=== PATIENT | male | born 1995 | race Caucasian/White ===

== ENCOUNTER 2017-08-01 07:28 | Inpatient (IN) ==
[2017-08-01] MEDS ORDERED: *HR* LORazepam 2 MG/ML VIAL IM PRN (08:01)
[2017-08-01] MEDS ORDERED: MOM Conc 10 ML UD.LIQ PO PRN (08:01)
[2017-08-01] MEDS ORDERED: Mag Hydrox/Al Hydrox/Simeth 30 ML UDC PO PRN (08:01)
[2017-08-01] MEDS ORDERED: Haloperidol Lactate 5 MG/ML VIAL IM PRN (08:01)
[2017-08-01] MEDS ORDERED: Ibuprofen 400 MG TABLET PO PRN (08:01)
[2017-08-01] MEDS ORDERED: Ondansetron ODT 4 MG TAB.RAPDIS SL PRN (08:05)
--- NOTE | 2017-08-01 08:13 | Psychiatry History & Physical ---
Date of Encounter: 08/01/17 Time of Encounter: 08:00 History of Present Illness Medicare Admission Attestation: For traditional Medicare patients the provided hospital inpatient services are reasonable and necessary and in the case of services not specified as inpatient -only under 42 CFR 419.22 (n), that they are appropriately provided as inpatient services in accordance 42 CFR 412.3. For Critical Access Hospital the patient may reasonably be expected to be discharged or transferred to a hospital within 96 hours after admission to the Critical Access Hospital. Admitted From: Intrahospital Transfer Plans for Post Hospital Care: Home History of Present Illness: Pt is a 22 yo ,, male, never , with no children, who presents for schizophrenia, depression and anxiety . P tnoted he has not been taking his medicaitons and was starting to hear voices and feel depressed. Pt noted he doing better since he is back on his medications and feeling safe. Pt noted he currently lives in [place] with my grandmother. Pt noted recent exacerbation of depression. Pt states when I came in I thought I wanted to hurt myself. Pt noted I came in because I needed some help I feel much better now. I feel safe and comfortable on the unit. Pt denied any side effects to current medications. Pt was in agreement with current treatment plan. Pt noted that he is doing not too good today. Pt noted he slept 1 hours broken night. Pt noted his appetite is its down. Pt rated his depression a 7, on a scale of zero to ten with ten being the worst and zero being none. Pt rate his anxiety a 8, on the same scale. Pt denied any auditory or visual hallucinations. Pt denied any current thoughts to harm anyone else. Pt noted occasional passive suicidal ideation, denies any current Pt noted that his mother is alive but we dont talk. PT noted my dad is alive and we talk regularly. Pt noted that his highest level of education is [employer]. Pt noted he is currently unemployed and receives SSDI. Pt noted multiple inpt psychiatric hospitalizations. Pt noted 3 previous suicide attempts last being cutting with a razor. Pt denied any family hx of suicides. PT denied any family mental health hx. Pt could not recall his medications hx however knew his diagnosis of schizophrenia, depression and anxiety Pt denied TBIs, Seizurs, HEP C or HIV. No TD noted, AIMS=0 MSE: Alert and Oriented x3 Appearance: appropriately groomed dressed in civilian attire Behavior: Polite, friendly, courteous Speech: fluent, normal tone, normal rate Mood: better but I am depression Affect: mood congruent Thought content: no HI noted, no SI noted, hx of delusions noted Psychosis: Signficant thought blocking noted Thought Process: linear logical, goal directed Judgment: Poor. Insight: questionable. Assessment/Plan 1.Interval hx 2.Continue current medications 3.Review current labs 4.Pt had an opportunity to ask questions and discuss current treatment plan. 5.Supportive therapy was provided 6.Pt encouraged to consider group or individual therapy 7.Pt was in agreement with treatment plan. 8.Pt was educated on the risks benefits and side effects of current medications. Medications & Allergies 3 Allergy/AdvReac Type Severity Reaction Status Date / Time No Known Allergies Allergy Verified 08/01/17 08:01 Review of Systems Constitutional: Denies: fever, chills, weakness, weight change Eyes: Denies: eye pain, vision change Ears, Nose, Throat: Denies: ear pain, throat pain, dental pain, hearing loss, congestion Cardiovascular: Denies: chest pain, palpitations, dyspnea on exertion Respiratory: Denies: cough, dyspnea, wheezes Gastrointestinal: Denies: abdominal pain, nausea, vomiting, diarrhea, constipation Genitourinary male: Denies: urgency, dysuria, frequency, genital lesions Musculoskeletal: Denies: joint swelling, joint pain Integumentary: Denies: rash, lesions, pruritus Neurological: Denies: headache, weakness, numbness, memory loss Psychiatric: Reports: depression, anxiety, abnormal sleep pattern, suicidal ideation, auditory hallucinations, visual hallucinations, anhedonia, mood swings Endocrine: Denies: fatigue, heat or cold intolerance Hematologic/Lymphatic: Denies: easy bruising, lymphadenopathy Allergic/Immunologic: Denies: urticaria, itchy eyes Exam - HEENT Head exam IM: Present: atraumatic Eye exam IM: Present: EOMI, normal appearance, PERRL ENT exam IM: Present: normal exam - Neurological Neurological exam: Present: CN II-XII intact - Respiratory Respiratory exam IM: Present: CTAB - GI/Abdominal GI/Abdominal exam IM: Present: normal bowel sounds, soft. Absent: tenderness - Extremities Extremities exam IM: Present: full ROM - Skin Skin exam IM: Present: dry, warm - Constitutional General appearance: age & developmentally appropriate, well-groomed, well- nourished - Musculoskeletal Gait: normal Station: relaxed Strength & Tone: normal for patient - Psychiatric Patient Orientation: Yes Person, Yes Time, Yes Place Level of alertness: Alert Behavior: calm, cooperative, guarded Psychomotor activity: Slowed Eye Contact: Minimal Contact Mood Description: Euthymic/stable, Depressed Affect description: congruent with mood, blunted, flat Speech Volume: Normal Speech pattern: normal rate, normal rhythm, normal tone, fluent, spontaneous, slowed Language & Vocabulary: consistent with education Thought Process: Linear, Goal Oriented, Thought Blocking Thought Content: Yes Suicidal ideation, No Homicidal ideation, No Overt delusions, Yes Ideas of reference, Yes Paranoid delusion Perceptual Disturbances: Yes Auditory hallucinations, Yes Visual hallucinations Attention Span Ability: Capable of Focused Attention Memory Description: Grossly Intact Patient Reliability: Reliable Historian Fund of knowledge: Yes abstraction ability, Yes average, Yes aware of current events Intelligence Estimate: Average Judgment: Limited Insight: Partial Assessment and Plan (1) Schizoaffective disorder Current visit: Yes Status: Acute Plan: Admit inpatient for safety and stabilization, Close observation, Suicide Precautions per unit protocol, Encourage participation in unit milieu, Group Therapy, Monitor sleep, Monitor appetite Risks, benefits, side effects, alternatives discussed w/pt: Yes Patient agreeable to treatment: Yes Plans for Post Hospital Care: Home Qualifiers: Schizoaffective disorder type: depressive Qualified Code(s): F25.1 - Schizoaffective disorder, depressive type (2) Depression Current visit: Yes Status: Acute Plan: Admit inpatient for safety and stabilization, Close observation, Suicide Precautions per unit protocol, Encourage participation in unit milieu, Group Therapy, Monitor sleep, Monitor appetite Risks, benefits, side effects, alternatives discussed w/pt: Yes Patient agreeable to treatment: Yes Plans for Post Hospital Care: Home Qualifiers: Depression Type: major depressive disorder Major depression recurrence: recurrent Qualified Code(s): F33.3 - Major depressive disorder, recurrent, severe with psychotic symptoms (3) Suicidal ideation Current visit: Yes Status: Acute Plan: Admit inpatient for safety and stabilization, Close observation, Suicide Precautions per unit protocol, Encourage participation in unit milieu, Group Therapy, Monitor sleep, Monitor appetite Risks, benefits, side effects, alternatives discussed w/pt: Yes Patient agreeable to treatment: Yes Plans for Post Hospital Care: Home
[2017-08-01] MEDS ORDERED: risperiDONE 1 MG TABLET PO SCH (09:00)
[2017-08-01] MEDS: lamoTRIgine 100 MG TABLET PO SCH (10:45)
[2017-08-01] MEDS: *HR* LORazepam 1 MG TABLET PO PRN (11:05)
[2017-08-01] MEDS ORDERED: *HR* LORazepam 1 MG TABLET PO ONE (12:26)
--- NOTE | 2017-08-01 15:19 | Internal Medicine Consult Note ---
Date of Encounter: 08/01/17 Time of Encounter: 15:08 - Assessment and plan (1) Hypothyroidism Current Visit: Yes Status: Suspected Assessment and plan: Hospitalist team being consult with concerns of hypothyroidism Patient admitted to inpatient psychiatric unit due to suicidal ideation, schizophrenia and intent to harm others [facility] found TSH greater than 4 during workup No known history of thyroid disorder -Obtain TSH now, free T4 Consider adding Synthroid the pending lab results Patient does not appear to have any S/SX of hypothyroidism Thyroid exam unremarkable Qualifiers: Qualified Code(s): E03.9 - Hypothyroidism, unspecified - Time Spent With Patient Total time spent is greater than 50% in coordination of care (as documented) at patient's floor/unit and/or counseling patient: 25 - 35 minutes Internal Medicine - CN: HPI - Data of Consult Patient: new to practice Consult date: 08/01/17 Requesting Physician: Chevy Atkinson - Consult Narrative History of present illness: Mr. Cota is a 22 year old male currently admitted to the inpatient psychiatric unit with schizophrenia, experiencing hallucinations with intent to harm others. Hospitalist is being consult for concerns for hypothyroidism. Patient from an [facility], TSH elevated at greater than 4. No history of thyroid disease. Past Med Surg Social Fam HX - Past Medical History Medical history: no medical history Psychiatric history: depression, prior suicide attempt, schizophrenia - Past Surgical History Additional surgical history: Bilat knee surgeries for ACL. - Social History Smoking Status: Current every day smoker Packs per day: 1/2 per day Smokeless Tobacco Status: No Alcohol use: none Drug use: marijuana - Family History Father History Unknown: Yes Adopted: [place]: [place] Age: 46 Family Member Ethnicity: Non- Living Status: Still Living Hx Family Cardiac Disorders: No Hx Family Respiratory Disorders: No Hx Family Cancer: No Hx Family GI Disorders: No Hx Family Genitourinary Disorders: No Hx Family Endocrine Disorder: No Hx Family Musculoskeletal Disorders: No Hx Family Neuromuscular Disorders: No Hx Family Neurologic Disorders: No Hx Family HEENT Disorders: No Hx Family Autoimmune Disorders: No Hx Family Reproductive Disorders: No Hx Family Psychosocial Disorders: No Hx Family Medical Disorders: No ROS unobtainable: due to mental status Internal Medicine - CN: Meds Aripiprazole [Abilify] 20 mg PO DAILY 08/01/17 [History] Benztropine [Cogentin] 1 mg PO BID 08/01/17 [History] Prazosin HCl [Minipress] 2 mg PO HS 08/01/17 [History] lamoTRIgine [Lamictal] 100 mg PO DAILY 08/01/17 [History] 3 Allergy/AdvReac Type Severity Reaction Status Date / Time No Known Allergies Allergy Verified 08/01/17 08:01 Internal Medicine - CN: Exam - Constitutional Vitals: Temp Pulse Resp BP 97.7 F 87 18 120/90 08/01/17 09:00 08/01/17 09:00 08/01/17 09:00 08/01/17 09:00 General appearance IM: Absent: answers questions appropriately - Head Head exam: Present: atraumatic, normal inspection - Expanded Head Exam Head exam expanded IM: Absent: Grace's sign - Eye Eye exam: Present: PERRL - Neck Neck exam general surgery: Present: normal inspection - Respiratory Respiratory exam: Present: CTAB - Cardiovascular Cardiovascular exam IM: Present: +S1, +S2 Consult Discharge Plan - Plan Referrals: [facility] [Other] - 08/25/17 2:00 pm (You will see Earl Kurtz for outpatient psychatric assessment and medication management services on 08/25/2017 at 2:00pm. You will also see Ricardo James for outpatient [facility] services on 09/03/2017 at 9:00am.)
[2017-08-01 17:59] LABS: Thyroid Stimulating Hormone 1.886 mcIU/mL (0.340-5.600)
[2017-08-01] MEDS: risperiDONE 1 MG TABLET PO SCH (20:56)
[2017-08-02] MEDS: lamoTRIgine 100 MG TABLET PO SCH (08:50)
[2017-08-02] MEDS: risperiDONE 1 MG TABLET PO SCH ×2 (08:50→20:58)
--- NOTE | 2017-08-02 09:07 | Internal Med Progress Note ---
Date of Encounter: 08/02/17 Time of Encounter: 09:05 - Assessment and plan (1) Hypothyroidism Current Visit: Yes Status: Suspected Assessment and plan: Hospitalist was consulted due to concerns of hypothyroidism Patient admitted to inpatient psychiatric unit due to suicidal ideation, schizophrenia and intent to harm others Outlying hospital found TSH greater than 4 during workup; repeat TSH 1.886, free T40.95; does not appear to have hypothyroidism; likely caused by antipsychotic medications No known history of thyroid disorder Grossly normal at the toe exam Hospitalist team signing off; please reconsult should any further needs arise. Thank you for consultation Qualifiers: Qualified Code(s): E03.9 - Hypothyroidism, unspecified - Time Spent With Patient Total time spent is greater than 50% in coordination of care (as documented) at patient's floor/unit and/or counseling patient: less than 15 minutes - Subjective Interval history: No acute changes overnight - Constitutional Vitals: Temp Pulse Resp BP 98.6 F 62 18 126/86 08/01/17 20:19 08/01/17 20:19 08/01/17 20:19 08/01/17 20:56 General appearance: Absent: answers questions appropriately - Head Head exam: Present: atraumatic, normocephalic - Eye Eye exam: Present: PERRL, conjuntiva pink, sclera anicteric Pupils: Present: PERRL - Neck Neck exam general surgery: Present: supple, trachea midline. Absent: lymphadenopathy - Respiratory Respiratory exam: Present: CTAB. Absent: accessory muscle use, rales, rhonchi, wheezes - Cardiovascular Cardiovascular exam: Present: RRR, +S1, +S2. Absent: diastolic murmur, gallop, rubs, systolic murmur - GI/Abdominal GI/Abdominal exam: Present: normal bowel sounds, soft, no peritoneal signs. Absent: distended, tenderness - Extremities Exam Extremities exam: Present: warm, radial pulses palpable and symmetrical. Absent : calf tenderness, cyanotic, pedal edema - Neurological Exam Neurological exam: Present: CN II-XII intact, oriented X3, no focal deficits. Absent: pronater drift, facial droop, speech deficit - Skin Skin exam: Present: dry, intact - VTE Reasons for not Prescribing Prophylaxis: Treatment not Indicated - Low risk for VTE Consult Discharge Plan - Plan Referrals: [facility] [Other] - 08/25/17 2:00 pm (You will see Earl Kurtz for outpatient psychatric assessment and medication management services on 08/25/2017 at 2:00pm. You will also see Ricardo James for outpatient [facility] counseling services on 09/03/2017 at 9:00am.)
--- NOTE | 2017-08-02 15:23 | Psychiatry Progress Note ---
Date of Encounter: 08/02/17 Time of Encounter: 15:00 Subjective Interval history: The patient is a 22-year-old white male. Chief complaint I might be feeling a little better on the new medicine. History of present illness:. The patient has reported seeing shadows and suicidal and homicidal ideation and come from bad thoughts. He did not want to discuss methods that it would use to harm other people or methods that he would use to harm himself. No actions to harm self. 2 days prior to going into the crisis unit he stopped his medicine. He is currently in an transition from Abilify to Risperdal. He notes no side effects to the medicine. He notes that before the medicine was started he did have a tremor of the right hand. This does not interfere with writing eating Review of Systems Psychiatric: Reports: depression, anxiety, abnormal sleep pattern, suicidal ideation, homicidal ideation, auditory hallucinations, visual hallucinations, anhedonia, mood swings Results - Vital Signs Vital Signs: Temp Pulse Resp BP 97.8 F 98 16 120/81 08/02/17 09:00 08/02/17 09:00 08/02/17 09:00 08/02/17 09:00 - Labs Labs: Laboratory Results - last 24 hr 08/01/17 16:55 TSH 1.886 Free T4 0.95 Assessment and Plan (1) Schizoaffective disorder Current visit: Yes Status: Acute Plan: Continue hospitalization, Close observation, Suicide Precautions per unit protocol, Encourage participation in unit milieu, Group Therapy, Monitor sleep, Monitor appetite Risks, benefits, side effects, alternatives discussed w/pt: Yes Patient agreeable to treatment: Yes Qualifiers: Schizoaffective disorder type: depressive Qualified Code(s): F25.1 - Schizoaffective disorder, depressive type (2) Depression Current visit: Yes Status: Acute Plan: Continue hospitalization, Suicide Precautions per unit protocol, Secure weapons Risks, benefits, side effects, alternatives discussed w/pt: Yes Patient agreeable to treatment: Yes Qualifiers: Depression Type: major depressive disorder Major depression recurrence: recurrent Qualified Code(s): F33.3 - Major depressive disorder, recurrent, severe with psychotic symptoms (3) Suicidal ideation Current visit: Yes Status: Acute Plan: Secure weapons, Family/Supportive other meeting Risks, benefits, side effects, alternatives discussed w/pt: Yes Patient agreeable to treatment: Yes (4) Hypothyroidism Current visit: Yes Status: Resolved Risks, benefits, side effects, alternatives discussed w/pt: Yes Patient agreeable to treatment: Yes Qualifiers: Hypothyroidism type: unspecified Qualified Code(s): E03.9 - Hypothyroidism , unspecified Consult Discharge Plan - Plan Referrals: [facility] [Other] - 08/25/17 2:00 pm (You will see Earl Kurtz for outpatient psychatric assessment and medication management services on 08/25/2017 at 2:00pm. You will also see Ricardo James for outpatient [facility] counseling services on 09/03/2017 at 9:00am.) Psychiatry Exam - Constitutional Vitals: Temp Pulse Resp BP 97.8 F 98 16 120/81 08/02/17 09:00 08/02/17 09:00 08/02/17 09:00 08/02/17 09:00 General appearance: age & developmentally appropriate, obese - Musculoskeletal Gait: slow Station: stooped Strength & Tone: normal for patient - Psychiatric Patient Orientation: Yes Person, Yes Time Level of alertness: Alert Behavior: calm, cooperative Psychomotor activity: Slowed Eye Contact: Minimal Contact Mood Description: Depressed Affect description: dysphoric Speech Volume: Soft/Quiet Speech pattern: normal rate Language & Vocabulary: high school level Thought Process: Linear, Evasive Thought Content: Yes Suicidal ideation, Yes Homicidal ideation, Yes Poverty of Content Perceptual Disturbances: Yes Auditory hallucinations, Yes Visual hallucinations Attention Span Ability: Capable of Sustained Attention Memory Description: Grossly Intact Patient Reliability: Questionable Historian Fund of knowledge: Yes average Intelligence Estimate: Average Judgment: Limited Insight: Minimal
[2017-08-02] MEDS: *HR* LORazepam 1 MG TABLET PO PRN ×2 (18:16→21:35)
[2017-08-03] MEDS: risperiDONE 1 MG TABLET PO SCH (08:45)
[2017-08-03] MEDS: lamoTRIgine 100 MG TABLET PO SCH (08:45)
--- NOTE | 2017-08-03 12:24 | Psychiatry Progress Note ---
Date of Encounter: 08/03/17 Time of Encounter: 11:15 Subjective Interval history: Pt is a 22 yo ,, male, never , with no children, who presents for schizophrenia, depression and anxiety . P tnoted he has not been taking his medicaitons and was starting to hear voices and feel depressed. Pt noted he doing better since he is back on his medications and feeling safe. Pt noted he currently lives in [place] with my grandmother. Pt noted recent exacerbation of depression. Pt states when I came in I thought I wanted to hurt myself. I feel safe and comfortable on the unit. Pt denied any side effects to current medications. Pt was in agreement with current treatment plan. Pt noted that he is doing not too good today. Pt noted he slept 8- 10 broken night. Pt noted his appetite is its down. Pt rated his depression a 6, on a scale of zero to ten with ten being the worst and zero being none. Pt rate his anxiety a 7, on the same scale. Pt denied any auditory or visual hallucinations. Pt denied any current thoughts to harm anyone else. Pt noted occasional passive suicidal ideation, denies any current PT was placed in quite room overnight due to hitting himeself in the face, because he was having thoughts to harm other people. Pt was given a ruberband to jay his wrist when he has those thoughts again so he does not hit himself. PT was in agreement. Pt denied TBIs, Seizurs, HEP C or HIV. No TD noted, AIMS=0 Assessment/Plan 1.Interval hx 2.Continue current medications 3.Review current labs 4.Pt had an opportunity to ask questions and discuss current treatment plan. 5.Supportive therapy was provided 6.Pt encouraged to consider group or individual therapy 7.Pt was in agreement with treatment plan. 8.Pt was educated on the risks benefits and side effects of current medications. 9. Increase risperidone to 2 mg PO QAM and 4 mg PO QHS for mood and psychosis Review of Systems Constitutional: Denies: fever, chills, weakness, weight change Eyes: Denies: eye pain, vision change Ears, Nose, Throat: Denies: ear pain, throat pain, dental pain, hearing loss, congestion Cardiovascular: Denies: chest pain, palpitations, dyspnea on exertion Respiratory: Denies: cough, dyspnea, wheezes Gastrointestinal: Denies: abdominal pain, nausea, vomiting, diarrhea, constipation Musculoskeletal: Denies: joint swelling, joint pain Neurological: Denies: headache, weakness, numbness, memory loss Psychiatric: Reports: depression, anxiety, abnormal sleep pattern, suicidal ideation, homicidal ideation, auditory hallucinations, visual hallucinations, anhedonia, mood swings Results - Vital Signs Vital Signs: Temp Pulse Resp BP 97 F L 99 16 132/89 08/03/17 09:00 08/03/17 09:00 08/03/17 09:00 08/03/17 09:00 Assessment and Plan (1) Schizoaffective disorder Current visit: Yes Status: Acute Plan: Continue hospitalization, Close observation, Suicide Precautions per unit protocol, Encourage participation in unit milieu, Group Therapy, Monitor sleep, Monitor appetite Risks, benefits, side effects, alternatives discussed w/pt: Yes Patient agreeable to treatment: Yes Qualifiers: Schizoaffective disorder type: depressive Qualified Code(s): F25.1 - Schizoaffective disorder, depressive type (2) Depression Current visit: Yes Status: Acute Plan: Continue hospitalization, Close observation, Suicide Precautions per unit protocol, Encourage participation in unit milieu, Group Therapy, Monitor sleep, Monitor appetite Risks, benefits, side effects, alternatives discussed w/pt: Yes Patient agreeable to treatment: Yes Qualifiers: Depression Type: major depressive disorder Major depression recurrence: recurrent Qualified Code(s): F33.3 - Major depressive disorder, recurrent, severe with psychotic symptoms (3) Suicidal ideation Current visit: Yes Status: Acute Plan: Continue hospitalization, Close observation, Suicide Precautions per unit protocol, Encourage participation in unit milieu, Group Therapy, Monitor sleep, Monitor appetite Risks, benefits, side effects, alternatives discussed w/pt: Yes Patient agreeable to treatment: Yes Consult Discharge Plan - Plan Referrals: [facility] [Other] - 08/25/17 2:00 pm (You will see Earl Kurtz for outpatient psychatric assessment and medication management services on 08/25/2017 at 2:00pm. You will also see Ricardo James for outpatient [facility] counseling services on 09/03/2017 at 9:00am.) Psychiatry Exam - Constitutional Vitals: Temp Pulse Resp BP 97 F L 99 16 132/89 08/03/17 09:00 08/03/17 09:00 08/03/17 09:00 08/03/17 09:00 General appearance: age & developmentally appropriate, well-groomed, well- nourished - Musculoskeletal Gait: normal Station: relaxed Strength & Tone: normal for patient - Psychiatric Patient Orientation: Yes Person, Yes Time, Yes Place Level of alertness: Alert Behavior: cooperative, agitated, aggressive Psychomotor activity: Normal Eye Contact: Minimal Contact Mood Description: Depressed, Anxious Affect description: dysphoric Speech Volume: Normal Speech pattern: normal rate, normal rhythm, normal tone, fluent, spontaneous Language & Vocabulary: consistent with education Thought Process: Thought Blocking Thought Content: Yes Homicidal ideation Perceptual Disturbances: Yes Auditory hallucinations Attention Span Ability: Capable of Sustained Attention Memory Description: Grossly Intact Patient Reliability: Questionable Historian Fund of knowledge: Yes abstraction ability Intelligence Estimate: Average Judgment: Limited Insight: Partial
[2017-08-03] MEDS ORDERED: risperiDONE 1 MG TABLET PO SCH (12:25)
[2017-08-03] MEDS: RISPERIDONE PO SCH (21:05)
[2017-08-03] MEDS: traZODone 50 MG TABLET PO PRN (23:24)
[2017-08-03] MEDS: hydrOXYzine pamoate 25 MG CAPSULE PO PRN (23:24)
[2017-08-04] MEDS: lamoTRIgine 100 MG TABLET PO SCH ×2 (08:32→21:08)
[2017-08-04] MEDS: risperiDONE 1 MG TABLET PO SCH (08:32)
[2017-08-04] MEDS ORDERED: INVEGA 234 MG ONE ×2 (09:00→11:15)
--- NOTE | 2017-08-04 12:52 | Psychiatry Progress Note ---
Date of Encounter: 08/04/17 Time of Encounter: 12:15 Subjective Interval history: Pt is a 22 yo ,, male, never , with no children, who presents for schizophrenia, depression and anxiety . P tnoted he has not been taking his medicaitons and was starting to hear voices and feel depressed. Pt noted he doing better since he is back on his medications and feeling safe. Pt noted he currently lives in [place] with my grandmother. Pt noted recent exacerbation of depression. Pt noted he is feeling better. Pt noted both depression and psychosis have reduced. Pt states when I came in I thought I wanted to hurt myself. I feel safe and comfortable on the unit. Pt denied any side effects to current medications. Pt was in agreement with current treatment plan. Pt noted that he is doing not too good today. Pt noted he slept 8 hours last night. Pt noted his appetite is okay. Pt rated his depression a 6, on a scale of zero to ten with ten being the worst and zero being none. Pt rate his anxiety a 5, on the same scale. Pt denied any auditory or visual hallucinations. Pt denied any current thoughts to harm anyone else. Pt noted occasional passive suicidal ideation, denies any current Pt agreed to start paliperidone 234 mg IM with follow up 156 mg IM in one week and 234 mg IM q28 days. PT additionally was in agreement to start lorazepam 0.5 mg PO BID for anxiety, Pt was educated on the risks benefits and side effects of current medications. Pt was agreement Pt denied TBIs, Seizurs, HEP C or HIV. No TD noted, AIMS=0 Assessment/Plan 1.Interval hx 2.Continue current medications 3.Review current labs 4.Pt had an opportunity to ask questions and discuss current treatment plan. 5.Supportive therapy was provided 6.Pt encouraged to consider group or individual therapy 7.Pt was in agreement with treatment plan. 8.Pt was educated on the risks benefits and side effects of current medications. 9. continue risperidone 4mg PO QHS for mood and psychosis for one week then D/C Review of Systems Constitutional: Denies: fever, chills, weakness, weight change Eyes: Denies: eye pain, vision change Ears, Nose, Throat: Denies: ear pain, throat pain, dental pain, hearing loss, congestion Cardiovascular: Denies: chest pain, palpitations, dyspnea on exertion Respiratory: Denies: cough, dyspnea, wheezes Gastrointestinal: Denies: abdominal pain, nausea, vomiting, diarrhea, constipation Musculoskeletal: Denies: joint swelling, joint pain Neurological: Denies: headache, weakness, numbness, memory loss Psychiatric: Reports: depression, anxiety, abnormal sleep pattern, suicidal ideation, homicidal ideation, auditory hallucinations, visual hallucinations, anhedonia, mood swings Results - Vital Signs Vital Signs: Temp Pulse Resp BP 97.2 F L 91 18 124/82 08/04/17 09:00 08/04/17 09:00 08/04/17 09:00 08/04/17 09:00 Assessment and Plan (1) Schizoaffective disorder Current visit: Yes Status: Acute Plan: Continue hospitalization, Close observation, Suicide Precautions per unit protocol, Encourage participation in unit milieu, Group Therapy, Monitor sleep, Monitor appetite Risks, benefits, side effects, alternatives discussed w/pt: Yes Patient agreeable to treatment: Yes Qualifiers: Schizoaffective disorder type: depressive Qualified Code(s): F25.1 - Schizoaffective disorder, depressive type (2) Depression Current visit: Yes Status: Acute Plan: Continue hospitalization, Close observation, Suicide Precautions per unit protocol, Encourage participation in unit milieu, Group Therapy, Monitor sleep, Monitor appetite Risks, benefits, side effects, alternatives discussed w/pt: Yes Patient agreeable to treatment: Yes Qualifiers: Depression Type: major depressive disorder Major depression recurrence: recurrent Qualified Code(s): F33.3 - Major depressive disorder, recurrent, severe with psychotic symptoms (3) Suicidal ideation Current visit: Yes Status: Acute Plan: Continue hospitalization, Close observation, Suicide Precautions per unit protocol, Encourage participation in unit milieu, Group Therapy, Monitor sleep, Monitor appetite Risks, benefits, side effects, alternatives discussed w/pt: Yes Patient agreeable to treatment: Yes Consult Discharge Plan - Plan Referrals: [facility] [Other] - 08/25/17 2:00 pm (You will see Earl Kurtz for outpatient psychatric assessment and medication management services on 08/25/2017 at 2:00pm. You will also see Ricardo James for outpatient mental health counseling services on 09/03/2017 at 9:00am.) Psychiatry Exam - Constitutional Vitals: Temp Pulse Resp BP 97.2 F L 91 18 124/82 08/04/17 09:00 08/04/17 09:00 08/04/17 09:00 08/04/17 09:00 General appearance: age & developmentally appropriate, well-groomed, well- nourished - Musculoskeletal Gait: normal Station: relaxed Strength & Tone: normal for patient - Psychiatric Patient Orientation: Yes Person, Yes Time, Yes Place Level of alertness: Alert Behavior: calm, cooperative Psychomotor activity: Normal Eye Contact: Maintains Eye Contact Mood Description: Euthymic/stable, Depressed Affect description: congruent with mood, full range Speech Volume: Normal Speech pattern: normal rate, normal rhythm, normal tone, fluent, spontaneous Language & Vocabulary: consistent with education Thought Process: Linear, Goal Oriented Thought Content: Yes Suicidal ideation, Yes Homicidal ideation, No Overt delusions Perceptual Disturbances: No Auditory hallucinations, No Visual hallucinations Attention Span Ability: Capable of Focused Attention Memory Description: Grossly Intact Patient Reliability: Reliable Historian Fund of knowledge: Yes abstraction ability, Yes aware of current events Intelligence Estimate: Average Judgment: Limited Insight: Partial
[2017-08-04] MEDS: *HR* LORazepam 0.5 MG TABLET PO SCH ×2 (13:42→21:07)
[2017-08-04] MEDS: RISPERIDONE PO SCH (21:08)
[2017-08-05] MEDS: *HR* LORazepam 0.5 MG TABLET PO SCH ×2 (08:21→20:59)
[2017-08-05] MEDS: lamoTRIgine 100 MG TABLET PO SCH ×2 (08:21→20:57)
[2017-08-05] MEDS: risperiDONE 1 MG TABLET PO SCH ×2 (08:22→20:59)
--- NOTE | 2017-08-05 12:35 | Psychiatry Progress Note ---
Date of Encounter: 08/05/17 Time of Encounter: 12:00 Subjective Interval history: Pt is a 22 yo ,, male, never , with no children, who presents for schizophrenia, depression and anxiety. Pt noted he has not been taking his medicaitons and was starting to hear voices and feel depressed. Pt noted he doing better since he is back on his medications and feeling safe and denies hearing voices. Pt noted he currently lives in [place] with my grandmother. Pt noted he is doing "much better.....I really feel better." Pt noted both depression and psychosis have reduced. Pt states "I feel safe and comfortable on the unit." Pt denied any side effects to current medications. Pt was in agreement with current treatment plan. Pt noted that he is doing much better today. Pt noted he slept 8 hours last night. Pt noted his appetite is okay. Pt rated his depression a 3, on a scale of zero to ten with ten being the worst and zero being none. Pt rate his anxiety a 3, on the same scale. Pt denied any auditory or visual hallucinations. Pt denied any current thoughts to harm anyone else. Pt agreed to continue paliperidone 234 mg IM with follow up 156 mg IM in one week and 234 mg IM q28 days. PT additionally was in agreement to start lorazepam 0.5 mg PO BID for anxiety, Pt was educated on the risks benefits and side effects of current medications. Pt was agreement Pt denied TBIs, Seizurs, HEP C or HIV. No TD noted, AIMS=0 Assessment/Plan 1.Interval hx 2.Continue current medications 3.Review current labs 4.Pt had an opportunity to ask questions and discuss current treatment plan. 5.Supportive therapy was provided 6.Pt encouraged to consider group or individual therapy 7.Pt was in agreement with treatment plan. 8.Pt was educated on the risks benefits and side effects of current medications. 9. continue risperidone 4mg PO QHS for mood and psychosis for one week then D/C 10. Continue to corrdinate D/C planning Review of Systems Constitutional: Denies: fever, chills, weakness, weight change Eyes: Denies: eye pain, vision change Ears, Nose, Throat: Denies: ear pain, throat pain, dental pain, hearing loss, congestion Cardiovascular: Denies: chest pain, palpitations, dyspnea on exertion Respiratory: Denies: cough, dyspnea, wheezes Gastrointestinal: Denies: abdominal pain, nausea, vomiting, diarrhea, constipation Musculoskeletal: Denies: joint swelling, joint pain Neurological: Denies: headache, weakness, numbness, memory loss Psychiatric: Reports: depression, anxiety, abnormal sleep pattern, suicidal ideation, homicidal ideation, auditory hallucinations, visual hallucinations, anhedonia, mood swings Results - Vital Signs Vital Signs: Temp Pulse Resp BP 97 F L 91 16 126/79 08/05/17 08:58 08/05/17 08:58 08/05/17 08:58 08/05/17 08:58 Assessment and Plan (1) Schizoaffective disorder Current visit: Yes Status: Acute Plan: Continue hospitalization, Close observation, Suicide Precautions per unit protocol, Encourage participation in unit milieu, Group Therapy, Monitor sleep, Monitor appetite Risks, benefits, side effects, alternatives discussed w/pt: Yes Patient agreeable to treatment: Yes Qualifiers: Schizoaffective disorder type: depressive Qualified Code(s): F25.1 - Schizoaffective disorder, depressive type (2) Depression Current visit: Yes Status: Acute Plan: Continue hospitalization, Close observation, Suicide Precautions per unit protocol, Encourage participation in unit milieu, Group Therapy, Monitor sleep, Monitor appetite Risks, benefits, side effects, alternatives discussed w/pt: Yes Patient agreeable to treatment: Yes Qualifiers: Depression Type: major depressive disorder Major depression recurrence: recurrent Qualified Code(s): F33.3 - Major depressive disorder, recurrent, severe with psychotic symptoms (3) Suicidal ideation Current visit: Yes Status: Acute Plan: Continue hospitalization, Close observation, Suicide Precautions per unit protocol, Encourage participation in unit milieu, Group Therapy, Monitor sleep, Monitor appetite Risks, benefits, side effects, alternatives discussed w/pt: Yes Patient agreeable to treatment: Yes Consult Discharge Plan - Plan Referrals: [facility] [Other] - 08/25/17 2:00 pm (You will see Earl Kurtz for outpatient psychatric assessment and medication management services on 08/25/2017 at 2:00pm. You will also see Ricardo James for outpatient mental health counseling services on 09/03/2017 at 9:00am.) Psychiatry Exam - Constitutional Vitals: Temp Pulse Resp BP 97 F L 91 16 126/79 08/05/17 08:58 08/05/17 08:58 08/05/17 08:58 08/05/17 08:58 General appearance: age & developmentally appropriate, well-groomed, well- nourished - Musculoskeletal Gait: normal Station: relaxed Strength & Tone: normal for patient - Psychiatric Patient Orientation: Yes Person, Yes Time, Yes Place Level of alertness: Alert Behavior: calm, cooperative Psychomotor activity: Normal Eye Contact: Maintains Eye Contact Mood Description: Euthymic/stable, Depressed Affect description: congruent with mood, full range, dysphoric Speech Volume: Normal Speech pattern: normal rate, normal rhythm, normal tone, fluent, spontaneous Language & Vocabulary: consistent with education Thought Process: Linear, Goal Oriented Thought Content: No Suicidal ideation, No Homicidal ideation, No Overt delusions Perceptual Disturbances: No Auditory hallucinations, No Visual hallucinations Attention Span Ability: Capable of Focused Attention Memory Description: Grossly Intact Patient Reliability: Reliable Historian Fund of knowledge: Yes abstraction ability, Yes aware of current events Intelligence Estimate: Average Judgment: Limited Insight: Partial
[2017-08-05] MEDS: traZODone 50 MG TABLET PO PRN (20:59)
[2017-08-05] MEDS: RISPERIDONE PO SCH (20:59)
--- NOTE | 2017-08-06 07:34 | Psychiatry Progress Note ---
Date of Encounter: 08/06/17 Time of Encounter: 07:15 Subjective Interval history: Pt is a 22 yo ,, male, never , with no children, who presents for schizophrenia, depression and anxiety. Pt noted he has not been taking his medications and was starting to hear voices and feel depressed. Pt noted he doing better since he is back on his medications and feeling safe and denies hearing voices. Pt noted he feels "really good," on the palipaeridone. Pt awaiting second injeciton prior to D/C. Pt noted he feels optimistic and positive. Pt noted he currently lives in [place] with my grandmother. Pt noted he is doing "much better.....I really feel better." Pt noted both depression and psychosis have reduced. Pt states "I feel safe and comfortable on the unit." Pt denied any side effects to current medications. Pt was in agreement with current treatment plan. Pt noted he slept 8 hours last night. Pt noted his appetite is okay. Pt rated his depression a 3, on a scale of zero to ten with ten being the worst and zero being none. Pt rate his anxiety a 3, on the same scale. Pt denied any auditory or visual hallucinations. Pt denied any current thoughts to harm anyone else. Pt agreed to continue paliperidone 234 mg IM with follow up 156 mg IM in one week and 234 mg IM q28 days. Pt was educated on the risks benefits and side effects of current medications. Pt was agreement Pt denied TBIs, Seizurs, HEP C or HIV. No TD noted, AIMS=0 Assessment/Plan 1.Interval hx 2.Continue current medications 3.Review current labs 4.Pt had an opportunity to ask questions and discuss current treatment plan. 5.Supportive therapy was provided 6.Pt encouraged to consider group or individual therapy 7.Pt was in agreement with treatment plan. 8.Pt was educated on the risks benefits and side effects of current medications. 9. Give 234 mg Paliperidone injection on friday then D/C pt home. Continue risperidone 4mg PO QHS for mood and psychosis for one week then D/C 10. Continue to corrdinate D/C planning Review of Systems Constitutional: Denies: fever, chills, weakness, weight change Eyes: Denies: eye pain, vision change Ears, Nose, Throat: Denies: ear pain, throat pain, dental pain, hearing loss, congestion Cardiovascular: Denies: chest pain, palpitations, dyspnea on exertion Respiratory: Denies: cough, dyspnea, wheezes Gastrointestinal: Denies: abdominal pain, nausea, vomiting, diarrhea, constipation Musculoskeletal: Denies: joint swelling, joint pain Neurological: Denies: headache, weakness, numbness, memory loss Psychiatric: Reports: depression, anxiety, abnormal sleep pattern, suicidal ideation, homicidal ideation, auditory hallucinations, visual hallucinations, anhedonia, mood swings Results - Vital Signs Vital Signs: Temp Pulse Resp BP 98.5 F 105 16 139/91 08/05/17 19:55 08/05/17 19:55 08/05/17 19:55 08/05/17 19:55 Assessment and Plan (1) Schizoaffective disorder Current visit: Yes Status: Acute Plan: Continue hospitalization, Close observation, Suicide Precautions per unit protocol, Encourage participation in unit milieu, Group Therapy, Monitor sleep, Monitor appetite Risks, benefits, side effects, alternatives discussed w/pt: Yes Patient agreeable to treatment: Yes Qualifiers: Schizoaffective disorder type: depressive Qualified Code(s): F25.1 - Schizoaffective disorder, depressive type (2) Depression Current visit: Yes Status: Acute Plan: Continue hospitalization, Close observation, Suicide Precautions per unit protocol, Encourage participation in unit milieu, Group Therapy, Monitor sleep, Monitor appetite Risks, benefits, side effects, alternatives discussed w/pt: Yes Patient agreeable to treatment: Yes Qualifiers: Depression Type: major depressive disorder Major depression recurrence: recurrent Qualified Code(s): F33.3 - Major depressive disorder, recurrent, severe with psychotic symptoms (3) Suicidal ideation Current visit: Yes Status: Acute Plan: Continue hospitalization, Close observation, Suicide Precautions per unit protocol, Encourage participation in unit milieu, Group Therapy, Monitor sleep, Monitor appetite Risks, benefits, side effects, alternatives discussed w/pt: Yes Patient agreeable to treatment: Yes Consult Discharge Plan - Plan Additional Instructions: Give paliperidon 234 mg IM injection prior to discharge, follow up without pt mental health for follow on injections. Referrals: [facility] [Other] - 08/25/17 10:30 am (You will see Earl Kurtz for outpatient psychiatric assessment and medication management services on 08/25/2017 at 10:30am. You will see nurse Santiago on 08/28/2017 at 10:00am to receive your next Invega Sustenna 234 mg injection. Please remember to take the injection medication with you to the clinic that day. You will also see Ricardo James for outpatient mental health counseling services on 09/03/2017 at 9:00am.) Psychiatry Exam - Constitutional Vitals: Temp Pulse Resp BP 98.5 F 105 16 139/91 08/05/17 19:55 08/05/17 19:55 08/05/17 19:55 08/05/17 19:55 General appearance: age & developmentally appropriate, well-groomed, well- nourished - Musculoskeletal Gait: normal Station: relaxed Strength & Tone: normal for patient - Psychiatric Patient Orientation: Yes Person, Yes Time, Yes Place Level of alertness: Alert Behavior: calm, cooperative Psychomotor activity: Normal Eye Contact: Maintains Eye Contact Mood Description: Euthymic/stable Affect description: congruent with mood, full range Speech Volume: Normal Speech pattern: normal rate, normal rhythm, normal tone, fluent, spontaneous Language & Vocabulary: consistent with education Thought Process: Linear, Goal Oriented Thought Content: No Suicidal ideation, No Homicidal ideation, No Overt delusions Perceptual Disturbances: No Auditory hallucinations, No Visual hallucinations Attention Span Ability: Capable of Focused Attention Memory Description: Grossly Intact Patient Reliability: Reliable Historian Fund of knowledge: Yes abstraction ability, Yes aware of current events Intelligence Estimate: Average Judgment: Limited Insight: Partial
[2017-08-06] MEDS: risperiDONE 1 MG TABLET PO SCH (08:22)
[2017-08-06] MEDS: lamoTRIgine 100 MG TABLET PO SCH ×2 (08:22→20:57)
[2017-08-06] MEDS: *HR* LORazepam 0.5 MG TABLET PO SCH ×2 (08:22→20:58)
[2017-08-06] MEDS: RISPERIDONE PO SCH (20:58)
[2017-08-06] MEDS: traZODone 50 MG TABLET PO PRN (22:08)
[2017-08-07] MEDS: risperiDONE 1 MG TABLET PO SCH (08:56)
[2017-08-07] MEDS: lamoTRIgine 100 MG TABLET PO SCH ×2 (08:57→20:35)
[2017-08-07] MEDS: *HR* LORazepam 0.5 MG TABLET PO SCH ×2 (08:57→20:36)
--- NOTE | 2017-08-07 15:41 | Psychiatry Progress Note ---
Date of Encounter: 08/07/17 Time of Encounter: 15:15 Subjective Interval history: Pt is a 22 yo ,, male, never , with no children, who presents for schizophrenia, depression and anxiety. Pt noted he has not been taking his medications and was starting to hear voices and feel depressed. Pt noted he doing better since he is back on his medications and feeling safe and denies hearing voices. Pt noted he feels "really good," on the palipaeridone. Pt awaiting second injeciton prior to D/C since outpt clinic is not open on fridays. Pt noted he feels optimistic and positive. Pt noted he currently lives in [place] with my grandmother. Pt noted he is doing "much better.....I really feel better." Pt noted both depression and psychosis have reduced. Pt states "I feel safe and comfortable.....the medication is working." Pt noted side effects to current medications via inability to achieve orgasm. Pt was in agreement with current treatment plan. Pt noted he slept 8 hours last night. Pt noted his appetite is okay. Pt rated his depression a 3, on a scale of zero to ten with ten being the worst and zero being none. Pt rate his anxiety a 3, on the same scale. Pt denied any auditory or visual hallucinations. Pt denied any current thoughts to harm anyone else. Pt agreed to continue paliperidone 234 mg IM with follow up 156 mg IM in one week and 234 mg IM q28 days. Pt was educated on the risks benefits and side effects of current medications. Pt was agreement Pt denied TBIs, Seizurs, HEP C or HIV. No TD noted, AIMS=0 Assessment/Plan 1.Interval hx 2.Continue current medications 3.Review current labs 4.Pt had an opportunity to ask questions and discuss current treatment plan. 5.Supportive therapy was provided 6.Pt encouraged to consider group or individual therapy 7.Pt was in agreement with treatment plan. 8.Pt was educated on the risks benefits and side effects of current medications. 9. Give 234 mg Paliperidone injection tomorrow then D/C pt home. Continue risperidone 2mg PO QHS untill injection 10. start bupropion due to exacerbation of sexual side-effects of current medications 11. Continue to corrdinate D/C planning for tomorrow Review of Systems Constitutional: Denies: fever, chills, weakness, weight change Eyes: Denies: eye pain, vision change Ears, Nose, Throat: Denies: ear pain, throat pain, dental pain, hearing loss, congestion Cardiovascular: Denies: chest pain, palpitations, dyspnea on exertion Respiratory: Denies: cough, dyspnea, wheezes Gastrointestinal: Denies: abdominal pain, nausea, vomiting, diarrhea, constipation Musculoskeletal: Denies: joint swelling, joint pain Neurological: Denies: headache, weakness, numbness, memory loss Psychiatric: Reports: depression, anxiety, abnormal sleep pattern, suicidal ideation, homicidal ideation, auditory hallucinations, visual hallucinations, anhedonia, mood swings Results - Vital Signs Vital Signs: Temp Pulse Resp BP 97.4 F L 94 18 129/81 08/07/17 09:00 08/07/17 09:00 08/07/17 09:00 08/07/17 09:00 Assessment and Plan (1) Schizoaffective disorder Current visit: Yes Status: Acute Plan: Continue hospitalization, Close observation, Suicide Precautions per unit protocol, Encourage participation in unit milieu, Group Therapy, Monitor sleep, Monitor appetite Risks, benefits, side effects, alternatives discussed w/pt: Yes Patient agreeable to treatment: Yes Qualifiers: Schizoaffective disorder type: depressive Qualified Code(s): F25.1 - Schizoaffective disorder, depressive type (2) Depression Current visit: Yes Status: Acute Plan: Continue hospitalization, Close observation, Suicide Precautions per unit protocol, Encourage participation in unit milieu, Group Therapy, Monitor sleep, Monitor appetite Risks, benefits, side effects, alternatives discussed w/pt: Yes Patient agreeable to treatment: Yes Qualifiers: Depression Type: major depressive disorder Major depression recurrence: recurrent Qualified Code(s): F33.3 - Major depressive disorder, recurrent, severe with psychotic symptoms (3) Suicidal ideation Current visit: Yes Status: Acute Plan: Continue hospitalization, Close observation, Suicide Precautions per unit protocol, Encourage participation in unit milieu, Group Therapy, Monitor sleep, Monitor appetite Risks, benefits, side effects, alternatives discussed w/pt: Yes Patient agreeable to treatment: Yes Consult Discharge Plan - Plan Additional Instructions: Invega Sustenna 234 mg injection given 08/04/2017. Invega Sustenna 156 mg injection given 08/08/2017. Invega Sustenna 234 mg injection to be given in three weeks from 08/08/2017. Appointment scheduled in outpatient office for patient to receive this on 08/28/2017. Ref[facility]: [facility] [place]] - 08/25/17 10:30 am (You will see Earl Jerardo for outpatient psychiatric assessment and medication management services on 08/25/2017 at 10:30am. You will see nurse Santiago on 08/28/2017 at 10:00am to receive your next Invega Sustenna 234 mg injection. Please remember to take the injection medication with you to the clinic that day. You will also see Ricardo James for outpatient mental health counseling services on 09/03/2017 at 9:00am. The above appointment(s) reflect first availability. You may contact the clinic regularly to check for cancellations that may allow you to be seen sooner. You may also walk-in to the clinic during business hours and be seen on crisis.) Psychiatry Exam - Constitutional Vitals: Temp Pulse Resp BP 97.4 F L 94 18 129/81 08/07/17 09:00 08/07/17 09:00 08/07/17 09:00 08/07/17 09:00 General appearance: age & developmentally appropriate, well-groomed, well- nourished - Musculoskeletal Gait: normal Station: relaxed Strength & Tone: normal for patient - Psychiatric Patient Orientation: Yes Person, Yes Time, Yes Place Level of alertness: Alert Behavior: calm, cooperative Psychomotor activity: Normal Eye Contact: Maintains Eye Contact Mood Description: Euthymic/stable Affect description: congruent with mood, full range Speech Volume: Normal Speech pattern: normal rate, normal rhythm, normal tone, fluent, spontaneous Language & Vocabulary: consistent with education Thought Process: Linear, Goal Oriented Thought Content: No Suicidal ideation, No Homicidal ideation, No Overt delusions Perceptual Disturbances: No Auditory hallucinations, No Visual hallucinations Attention Span Ability: Capable of Focused Attention Memory Description: Grossly Intact Patient Reliability: Reliable Historian Fund of knowledge: Yes abstraction ability, Yes aware of current events Intelligence Estimate: Average Judgment: Limited Insight: Partial
[2017-08-07] MEDS: RISPERIDONE PO SCH (20:40)
[2017-08-07] MEDS: traZODone 50 MG TABLET PO PRN (22:25)
[2017-08-08] MEDS: hydrOXYzine pamoate 25 MG CAPSULE PO PRN (03:11)
--- NOTE | 2017-08-08 08:22 | Discharge Summary ---
Date of Encounter: 08/08/17 Time of Encounter: 08:00 Diagnosis - Discharge Diagnosis (1) Schizoaffective disorder Status: Acute Qualifiers: Schizoaffective disorder type: depressive Qualified Code(s): F25.1 - Schizoaffective disorder, depressive type (2) Depression Status: Acute Qualifiers: Depression Type: major depressive disorder Major depression recurrence: recurrent Qualified Code(s): F33.3 - Major depressive disorder, recurrent, severe with psychotic symptoms (3) Suicidal ideation Status: Acute Medications - Discharge Medications Prescriptions: hydrOXYzine pamoate [HydrOXYzine Pamoate] 25 mg PO TID PRN #90 capsule PRN Reason: Anxiety lamoTRIgine [Lamictal] 150 mg PO HS #45 tablet lamoTRIgine [Lamictal] 100 mg PO DAILY 30 Days #30 tablet LORazepam [Ativan] 0.5 mg PO BID 30 Days #60 tablet Prazosin HCl [Minipress] 2 mg PO HS 30 Days #30 capsule Benztropine [Cogentin] 1 mg PO BID 08/01/17 [History] LORazepam [Ativan] 0.5 mg PO BID 30 Days #60 tablet 08/08/17 [Rx] Prazosin HCl [Minipress] 2 mg PO HS 30 Days #30 capsule 08/08/17 [Rx] hydrOXYzine pamoate [HydrOXYzine Pamoate] 25 mg PO TID PRN #90 capsule 08/08/17 [Rx] lamoTRIgine [Lamictal] 100 mg PO DAILY 30 Days #30 tablet 08/08/17 [Rx] lamoTRIgine [Lamictal] 150 mg PO HS #45 tablet 08/08/17 [Rx] 3 Allergy/AdvReac Type Severity Reaction Status Date / Time No Known Allergies Allergy Verified 08/01/17 08:01 Results Procedures and tests throughout hospitalization: Completed Lab Orders Category Date Time Status TSH [Thyroid Stimulating Hormone] Routine Lab 08/01/17 16:55 Completed Thyroxine (T4) Free Routine Lab 08/01/17 16:55 Completed Provider Date of admission: 08/01/17 07:28 Primary care physician: PCP NONE Consults: 08/01/17 11:45 Consult to Hospitalist [CONS] Routine Consulting Provider: Hospitalist Sanaz Reason for Consult: Thyroid, abnormal labs Call Completed: Yes Discharging clinician: Chevy Atkinson Psychiatry Exam - Constitutional Vitals: Temp Pulse Resp BP 98 F 103 18 120/78 08/07/17 21:00 08/07/17 21:00 08/07/17 21:00 08/07/17 21:00 General appearance: age & developmentally appropriate, well-groomed, well- nourished - Musculoskeletal Gait: normal Station: relaxed Strength & Tone: normal for patient - Psychiatric Patient Orientation: Yes Person, Yes Time, Yes Place Level of alertness: Alert Behavior: calm, cooperative Psychomotor activity: Normal Eye Contact: Maintains Eye Contact Mood Description: Euthymic/stable Affect description: congruent with mood, full range Speech Volume: Normal Speech pattern: normal rate, normal rhythm, normal tone, fluent, spontaneous Language & Vocabulary: consistent with education Thought Process: Linear, Goal Oriented Thought Content: No Suicidal ideation, No Homicidal ideation, No Overt delusions Perceptual Disturbances: No Auditory hallucinations, No Visual hallucinations Attention Span Ability: Capable of Focused Attention Memory Description: Grossly Intact Patient Reliability: Reliable Historian Fund of knowledge: Yes abstraction ability, Yes aware of current events Intelligence Estimate: Average Judgment: Limited Insight: Partial Hospital Course Hospital course: Pt is a 22 yo ,, male, never , with no children, who presents for schizophrenia, depression and anxiety. Pt noted he has not been taking his medications and was starting to hear voices and feel depressed. Pt noted he doing better since he is back on his medications and feeling safe and denies hearing voices. Pt noted he feels "really good," on the palipaeridone. Pt agrees to second injeciton prior to D/C. Pt noted he feels optimistic and positive. Pt noted he currently lives in [place] with my grandmother. Pt noted he is doing "much better.....I feel comfortable to D/C home." Pt noted both depression and psychosis have reduced. Pt states "I feel safe and comfortable.....the medication is working." Pt noted side effects to current medications via inability to achieve orgasm. Pt was in agreement with current treatment plan. Pt noted he slept 8 hours last night. Pt noted his appetite is okay. Pt rated his depression a 0, on a scale of zero to ten with ten being the worst and zero being none. Pt rate his anxiety a 0, on the same scale. Pt denied any auditory or visual hallucinations. Pt denied any current thoughts to harm anyone else. Pt agreed to continue paliperidone 234 mg IM with follow up 156 mg IM in one week and 234 mg IM q28 days. Pt was educated on the risks benefits and side effects of current medications. Pt was agreement Patient noted a significant reeducation in his depression and anxiety during his stay on 1A. Pt noted that he slowly improved to the point that he was comfortable and safe to start programs. Pt noted he felt his medications were working well and denied any current side effects. Treatment team encouraged Pt to stay out of bed and try to find activities to do, verbalized understanding. pt reported that he felt safe on the unit and comfortable for discharge home. Pt Denied suicidal/homicidal ideations, denied any problems or concerns with medications or side effects. PT voiced progression towards treatment goals and was offered a copy of updated treatment plan completed during visit today. Denied any immediate needs or concerns. Pt throughout his stay on inpt psych pt felt like his medications were working and felt comfortable being discharged on these medications. Pt was advised to take all medications as prescribed, follow up with all scheduled appointments and abstain from any alcohol or illicit substances. Pt was in agreement. Pt felt safe and comfortable to be discharged to his home and follow up with outpt/ inpt mental health. Pt was very optimistic about his D/C. Pt felt safe and comfortable for D/C. Pt stated that he was doing "good," today. Pt stated that he slept "about 6 hours," last night. Pt stated that his appetite is "good." Pt stated that he rates his depression a "0," on a scale of 0-10 with 10 being the worst and 0 being none. Pt stated that he rates his anxiety an "0/10," on the same scale. Pt denies any auditory or visual hallucinations. Pt denied any thoughts to harm himself or anyone else. Pt felt safe and comfortable for D/C. Pt denied TBIs, Seizurs, HEP C or HIV. No TD noted, AIMS=0 Assessment/Plan 1.Interval hx 2.Continue current medications 3.Review current labs 4.Pt had an opportunity to ask questions and discuss current treatment plan. 5.Supportive therapy was provided 6.Pt encouraged to consider group or individual therapy 7.Pt was in agreement with treatment plan. 8.Pt was educated on the risks benefits and side effects of current medications. 9. Give 234 mg Paliperidone injection today then D/C pt home. D/C risperidone 2mg PO QHS untill injection 10. Continue bupropion due to exacerbation of sexual side-effects of current medications 11. Take all medicaitons as prescribed. 12. abstain from any alcohol or illict substances. 13. follow up with all scheduled appointments Time spent discussing smoking cessation with patient: 3 to 10 minutes Does patient wish to continue nicotine replacement upon disc: Yes - Time Spent with Patient Total time spent providing and/or coordinating discharge services: Greater than 30 minutes Assessment and Plan - Patient/Caregiver Discharge Instructions Activity: resume usual activities as tolerated Diet: regular diet Additional Instructions: Invega Sustenna 234 mg injection given 08/04/2017. Invega Sustenna 156 mg injection given 08/08/2017. Invega Sustenna 234 mg injection is to be given in three weeks from 08/08/2017. Appointment scheduled in outpatient office for patient to receive this on 08/28/2017. - Follow up Plan Follow up with: Shefali Glass [facility] [Outside] - 08/25/17 10:30 am (The above appointment is with Earl Kurtz for outpatient psychiatric assessment and medication management services. You will see nurse Santiago on 08/28/2017 at 10:00am to receive your next Invega Sustenna 234 mg injection. You will also see Ricardo James for outpatient mental health counseling services on 09/03/2017 at 9: 00am. The above appointment(s) reflect first availability. You may contact the clinic regularly to check for cancellations that may allow you to be seen sooner. You may also walk-in to the clinic during business hours and be seen on crisis.) Functional capacity at discharge: independent ambulation Overall status at discharge: patient is back to baseline Disposition: Home, Self-Care Quality - Multiple Antipsychotics Patient discharged on 2 or more antipsychotic medications: No - Justification Documentation of: Other justification (D/C pt on one antipsychotic) Procedures - Procedures Procedures: Medication Management, Crisis Stabilization, Supportive Therapy, Group Therapy, Psychoeducational Therapy
[2017-08-08] MEDS: risperiDONE 1 MG TABLET PO SCH (08:51)
[2017-08-08] MEDS: *HR* LORazepam 0.5 MG TABLET PO SCH (08:52)
[2017-08-08] MEDS: lamoTRIgine 100 MG TABLET PO SCH (08:52)
[2017-08-08 09:22] VITALS: BP 130/96
[2017-08-08] MEDS ORDERED: (Paliperidone Palmitate [Invega Sustenna] 156 MG) IM ONE (09:45)
== END 2017-08-08 11:05 | disposition home or self-care (01) | DRG 885 ==
LOC: SUATTDRO 07:28 → 1ANU 07:28
PROVIDERS: ADMIT General Practice; ATTEND Psychiatry & Neurology Forensic Psychiatry